=== PATIENT | male | born 1985 | race Caucasian/White ===

== ENCOUNTER → 2017-10-20 | Outpatient (CLI) | payer BC ==
--- NOTE | 2017-10-20 09:00 | US ---
EXAMINATION TYPE: US abdomen comp/pelvis limited DATE OF EXAM: 10/20/2017 COMPARISON: NONE CLINICAL HISTORY: R10.2 Pelvis and perineal Pain. Complains of pelvic pain x years and concerned abou t prostate; right flank pain and increased pelvic pain recently EXAM MEASUREMENTS: Liver Length: 13.1 cm Gallbladder Wall: 0.2 cm CBD: 0.2 cm Spleen: 10.3 cm Right Kidney: 11.3 x 5.9 x 5.6 cm Left Kidney: 11.3 x 6.0 x 5.8 cm Post Void Residual: 4.8 mL Pancreas: wnl Liver: wnl Gallbladder: wnl CBD: wnl Spleen: wnl Right Kidney: No hydronephrosis or masses seen Left Kidney: No hydronephrosis or masses seen Upper IVC: wnl Abd Aorta: upper aorta mildly obscured by overlying bowel gas, but size is wnl Bladder: wnl Bilateral Jets Seen Yes Normal Post Void Residual (normal less than 50ml) Yes Prostate Transabdominally: Large amount of Central Gland shadowing calcifications are noted within pr ostate. Urinary bladder is sonolucent. There is a normal postvoid residual 5 mL. IMPRESSION: 1. No acute process visualized. 2. Prostate appears prominent within the [id number].
== END | disposition home or self-care (01) ==
LOC: RADUSWWP 07:46
PROVIDERS: ATTEND Family Medicine
DX: R10.2 Pelvic and perineal pain (principal)
CPT/HCPCS: 76700; 76857

== ENCOUNTER → 2019-05-18 | Outpatient (CLI) | payer BC ==
--- NOTE | 2019-05-29 03:03 | EM ---
EVENT MONITOR Seven days event monitor DATE OF SERVICE: 05/18/2019. INDICATIONS: Palpitations. REFERRING PHYSICIAN: Dr. Schreiber. 7 day event monitor. CLINICAL INFORMATION: The baseline rhythm appeared to be a sinus mechanism. During this 7 days of monitoring, the patient did have multiple episodes of sinus tachycardia up to about 170 beats per minute, heart rate. Also, she did have multiple episodes of sinus bradycardia with the lowest heart rate of 42 beats per minute during the day. There was no indication that the patient was asymptomatic during these episodes of sinus tachycardia or sinus bradycardia. There is no evidence of any advanced AV block seen. No evidence of sinus pause or sinus arrest seen. I do not see any symptoms reported during the 7 days monitoring. CONCLUSION: 1. Sinus rhythm as a baseline mechanism. 2. The patient did have multiple episodes of sinus tachycardia with a highest heart rate of 170 beats per minute. She was asymptomatic during these episodes. 3. Multiple episodes of sinus bradycardia and seems to be date of sinus bradycardia with the lowest heart rate of 42 beats per minute at 11 in the morning. The patient does not seem to be symptomatic during these episodes. 4. No evidence of sinus pause or sinus arrest. 5. No evidence of any advanced AV block seen. MMODL / IJN: [id number] /
== END | disposition home or self-care (01) ==
LOC: RADECHMAIN 05-17 08:02
PROVIDERS: ATTEND Family Medicine
DX: R00.0 Tachycardia, unspecified (principal); R00.1 Bradycardia, unspecified
CPT/HCPCS: 93270

== ENCOUNTER → 2019-09-16 | Outpatient (CLI) | payer OTHER, BC ==
--- NOTE | 2019-09-16 11:15 | MR ---
EXAMINATION TYPE: MR lumbar spine wo con DATE OF EXAM: 09/16/2019 COMPARISON: NONE HISTORY: Lumbago With Sciatica TECHNIQUE: T1 and T2 axial and sagittal images of the lumbar spine are submitted. FINDINGS: There is no abnormal signal seen within the visualized spinal cord or paraspinal soft tissu es. Mild disc desiccation L1-2, L2-3, L3-4, and L5-S1. Incidental note is made of a retroaortic left renal vein At T12-L1 there is a broad-based central disc protrusion. There is displacement of the thecal sac but no spinal cord contact. Neural foramina remain patent. At L1-2 there is no disc herniation or canal stenosis. No foraminal encroachment. At L2-3 there is no disc herniation or canal stenosis. No foraminal encroachment. At L3-4 there is no disc herniation or canal stenosis. No foraminal encroachment. At L4-5 there is no disc herniation or canal stenosis. There is facet arthropathy. No foraminal encro achment. At L5-S1 there is advanced facet arthropathy. There is a slight anterolisthesis of L5 on S1. Findings suspicious for bilateral spondylolysis. No Canal stenosis. Posterior disc bulging seen. Moderate jose ateral foraminal encroachment. IMPRESSION: 1. Slight anterolisthesis L5 on S1 with suspected bilateral spondylolysis. Moderate bilateral foramin al encroachment. 2. There is a broad-based central disc protrusion T12-L1 with mass effect upon the thecal sac but no spinal cord contact or foraminal encroachment.
== END | disposition home or self-care (01) ==
LOC: RADMRIMAIN 10:32
PROVIDERS: ATTEND Family Medicine
DX: M51.26 Other intervertebral disc displacement, lumbar region (principal); M43.16 Spondylolisthesis, lumbar region
CPT/HCPCS: 72148

== ENCOUNTER → 2020-07-19 | Outpatient (CLI) | payer BC, OTHER | END | disposition home or self-care (01) | LOC: LABWHC1 14:37 | PROVIDERS: ATTEND Nurse Practitioner Family | DX: Z20.828 Contact with and (suspected) exposure to other viral communicable diseases (principal) | CPT/HCPCS: U0003; C9803 ==

== ENCOUNTER 2021-07-31 18:50 | Observation (INO) | payer BC, OTHER ==
[2021-07-31] MEDS ORDERED: ASPIRIN 81 MG PO STA (18:51)
[2021-07-31] MEDS ORDERED: NITROGLYCERIN OINT 1 INCH/GM PACKET TOPICAL STA (18:51)
--- NOTE | 2021-07-31 19:23 | ED ---
General Adult HPI - General Chief complaint: Chest Pain Stated complaint: abnormal labs, chest pain Time Seen by Provider: 07/31/21 18:51 Source: patient, RN/MD (Case was discussed with Dr. Espinoza prior to patient arrival), RN notes reviewed Mode of arrival: ambulatory Limitations: no limitations - History of Present Illness Initial comments: Patient is a pleasant 36-year-old male presenting to the emergency Department with complaints of chest discomfort. Onset of symptoms was several weeks ago. Patient has had persistent discomfort since that time. Discomfort at times does get worse, up to 45/10. Discomfort at this time is mild rated 2/10. Discomfort feels like pressure. Patient is unclear if there is minimal associated dyspnea. No nausea. No diaphoresis. Patient has not exerted himself since this started because he has been nervous 2. Patient did have outpatient blood work done through Dr. Espinoza who was concern for elevated troponin and recommended patient come to the emergency department. - Related Data Home Medications Medication Instructions Recorded Confirmed Aspirin 81 mg PO DAILY 06/28/14 07/31/21 Atorvastatin [Lipitor] 40 mg PO HS 07/31/21 07/31/21 Loratadine 10 mg PO DAILY 07/31/21 07/31/21 Montelukast [Singulair] 10 mg PO HS 07/31/21 07/31/21 hydroCHLOROthiazide [Hydrodiuril] 12.5 mg PO DAILY 07/31/21 07/31/21 lisinopriL 10 mg PO DAILY 07/31/21 07/31/21 Allergies Allergy/AdvReac Type Severity Reaction Status Date / Time cefaclor [From Ceclor] Allergy Unknown Verified 07/31/21 20:33 Childhood Penicillins Allergy Rash/Hives Verified 07/31/21 20:33 Review of Systems ROS Statement: Those systems with pertinent positive or pertinent negative responses have been documented in the HPI. ROS Other: All systems not noted in ROS Statement are negative. 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 History of Any Multi-Drug Resistant Organisms: None Reported Past Surgical History: Hernia Repair Additional Past Surgical History / Comment(s): recent vasectomy, had minimally invasive surgery 3 yrs ago to repair "holes" in heart Past Anesthesia/Blood Transfusion Reactions: No Reported Reaction Past Psychological History: No Psychological Hx Reported Past Alcohol Use History: Occasional Past Drug Use History: None Reported General Exam Limitations: no limitations General appearance: alert, in no apparent distress Head exam: Present: normocephalic Eye exam: Present: normal appearance Neck exam: Present: normal inspection Respiratory exam: Present: normal lung sounds bilaterally. Absent: chest wall tenderness Cardiovascular Exam: Present: regular rate, normal rhythm Expanded Peripheral pulses: 2+: Radial (R), Radial (L), Posterior Tibialis (R), Posterior Tibialis (L) GI/Abdominal exam: Present: soft. Absent: tenderness Extremities exam: Present: normal inspection. Absent: pedal edema, calf tenderness Neurological exam: Present: alert Psychiatric exam: Present: normal affect, normal mood Skin exam: Present: normal color Course Vital Signs 07/31/21 18:58 Temperature 98.1 F Pulse Rate 65 Respiratory 19 Rate Blood Pressure 146/93 O2 Sat by Pulse 97 Oximetry EKG Findings - EKG Comments: EKG Findings:: Normal sinus rhythm with rate of 74. GA 194. QRS 82. QT 34. Q TC 426. Normal axis. Normal QRS. No acute ST change. T-wave inversion in lead III. Medical Decision Making - Medical Decision Making Patient reevaluated and resting comfortably in bed. Patient family updated on results and plan. Case was discussed with practitioner Lang [email or web address], covering for Dr. Villa, who admits for Dr. Espinoza. - Lab Data Result diagrams: 07/31/21 19:33 07/31/21 19:33 Lab Results 07/31/21 07/31/21 07/31/21 Range/Units 19:33 19:33 19:33 WBC 5.3 (3.8-10.6) k/uL RBC 4.74 (4.30-5.90) m/uL Hgb 15.0 (13.0-17.5) gm/dL Hct 44.6 (39.0-53.0) % MCV 94.0 (80.0-100.0) fL MCH 31.7 (25.0-35.0) pg MCHC 33.7 (31.0-37.0) g/dL RDW 11.8 (11.5-15.5) % Plt Count 186 (150-450) k/uL MPV 6.8 Neutrophils % 52 % Lymphocytes % 36 % Monocytes % 6 % Eosinophils % 3 % Basophils % 1 % Neutrophils # 2.8 (1.3-7.7) k/uL Lymphocytes # 1.9 (1.0-4.8) k/uL Monocytes # 0.3 (0-1.0) k/uL Eosinophils # 0.1 (0-0.7) k/uL Basophils # 0.0 (0-0.2) k/uL PT (9.0-12.0) sec INR (<1.2) APTT (22.0-30.0) sec D-Dimer (<0.60) mg/L FEU Sodium 135 L (137-145) mmol/L Potassium 4.0 (3.5-5.1) mmol/L Chloride 102 (98-107) mmol/L Carbon Dioxide 23 (22-30) mmol/L Anion Gap 10 mmol/L BUN 23 H (9-20) mg/dL Creatinine 0.79 (0.66-1.25) mg/dL Est GFR (CKD-EPI)AfAm >90 (>60 ml/min/1.73 sqM) Est GFR (CKD-EPI)NonAf >90 (>60 ml/min/1.73 sqM) Glucose 99 (74-99) mg/dL Calcium 9.5 (8.4-10.2) mg/dL Magnesium 1.9 (1.6-2.3) mg/dL Total Bilirubin 0.4 (0.2-1.3) mg/dL AST 49 (17-59) U/L ALT 46 (4-49) U/L Alkaline Phosphatase 62 (38-126) U/L Troponin I <0.012 (0.000-0.034) ng/mL Total Protein 7.5 (6.3-8.2) g/dL Albumin 4.5 (3.5-5.0) g/dL 07/31/21 Range/Units 19:33 WBC (3.8-10.6) k/uL RBC (4.30-5.90) m/uL Hgb (13.0-17.5) gm/dL Hct (39.0-53.0) % MCV (80.0-100.0) fL MCH (25.0-35.0) pg MCHC (31.0-37.0) g/dL RDW (11.5-15.5) % Plt Count (150-450) k/uL MPV Neutrophils % % Lymphocytes % % Monocytes % % Eosinophils % % Basophils % % Neutrophils # (1.3-7.7) k/uL Lymphocytes # (1.0-4.8) k/uL Monocytes # (0-1.0) k/uL Eosinophils # (0-0.7) k/uL Basophils # (0-0.2) k/uL PT 10.2 (9.0-12.0) sec INR 0.9 (<1.2) APTT 24.2 (22.0-30.0) sec D-Dimer 0.24 (<0.60) mg/L FEU Sodium (137-145) mmol/L Potassium (3.5-5.1) mmol/L Chloride (98-107) mmol/L Carbon Dioxide (22-30) mmol/L Anion Gap mmol/L BUN (9-20) mg/dL Creatinine (0.66-1.25) mg/dL Est GFR (CKD-EPI)AfAm (>60 ml/min/1.73 sqM) Est GFR (CKD-EPI)NonAf (>60 ml/min/1.73 sqM) Glucose (74-99) mg/dL Calcium (8.4-10.2) mg/dL Magnesium (1.6-2.3) mg/dL Total Bilirubin (0.2-1.3) mg/dL AST (17-59) U/L ALT (4-49) U/L Alkaline Phosphatase (38-126) U/L Troponin I (0.000-0.034) ng/mL Total Protein (6.3-8.2) g/dL Albumin (3.5-5.0) g/dL - Radiology Data Radiology results: image reviewed (Chest x-ray shows no acute process) Disposition Clinical Impression: Chest pain Disposition: ADMITTED IP TO THIS [facility] Is patient prescribed a controlled substance at d/c from ED?: No Referrals: Kourtney Espinoza III, MD [Primary Care Provider] - 1-2 days Decision Time: 21:11
[2021-07-31 19:47] LABS: Basophils % (A) 1 %; Eosinophils # (A) 0.1 k/uL (0-0.7); Eosinophils % (A) 3 %; HCT 44.6 % (39.0-53.0); Lymphocytes # (A) 1.9 k/uL (1.0-4.8); Lymphocytes % (A) 36 %; MCH 31.7 pg (25.0-35.0); MCHC 33.7 g/dL (31.0-37.0); Mean Platelet Volume 6.8; Monocytes # (A) 0.3 k/uL (0-1.0); Monocytes % (A) 6 %; Neutrophils # (A) 2.8 k/uL (1.3-7.7); Neutrophils % (A) 52 %; Platelet Count 186 k/uL (150-450); RBC 4.74 m/uL (4.30-5.90); RDW 11.8 % (11.5-15.5); WBC 5.3 k/uL (3.8-10.6)
[2021-07-31 20:06] LABS: INR 0.9 (<1.2); Partial Thromboplastin Time 24.2 sec (22.0-30.0); Prothrombin Time 10.2 sec (9.0-12.0)
--- NOTE | 2021-07-31 20:06 | XR ---
EXAMINATION TYPE: XR chest 2V DATE OF EXAM: 07/31/2021 COMPARISON: NONE HISTORY: Chest pain TECHNIQUE: 2 views FINDINGS: Heart and mediastinum are normal. Lungs are clear. Diaphragm is normal. Bony thorax is inta ct. IMPRESSION: Normal chest. Normal heart.
[2021-07-31 20:45] LABS: ALT 46 U/L (4-49); AST 49 U/L (17-59); African American GFR (CKD) >90 (>60 ml/min/1.73 sqM); Albumin 4.5 g/dL (3.5-5.0); Alkaline Phosphatase 62 U/L (38-126); Anion Gap 10 mmol/L; Blood Urea Nitrogen 23 mg/dL (9-20); Calcium 9.5 mg/dL (8.4-10.2); Carbon Dioxide 23 mmol/L (22-30); Chloride 102 mmol/L (98-107); Glucose 99 mg/dL (74-99); Magnesium 1.9 mg/dL (1.6-2.3); Non-African American GFR(CKD) >90 (>60 ml/min/1.73 sqM); Sodium 135 mmol/L (137-145); Total Bilirubin 0.4 mg/dL (0.2-1.3); Total Protein 7.5 g/dL (6.3-8.2)
[2021-07-31] MEDS ORDERED: NITROGLYCERIN SL TABS 0.4 MG TAB SUBLINGUAL PRN (21:12)
[2021-08-01 07:56] VITALS: TEMP 98
[2021-08-01] MEDS: NITROGLYCERIN OINT 1 INCH/GM PACKET TOPICAL SCH (08:29)
[2021-08-01] MEDS ORDERED: ASPIRIN 325 MG TAB PO SCH (09:00)
--- NOTE | 2021-08-01 09:40 | P.CRDCN ---
History of Present Illness History of present illness: HISTORY OF PRESENTING ILLNESS This is a pleasant 36-year-old male past medical history significant for former smoker quit 10 years ago, hypertension, dyslipidemia, asthma, status post device closer of ASD, TIA. He does not follow with a psychiatric orderly but has seen Dr. Ernst in 2019 in the office. We have been asked to see in consultation for chest pain. Patient is seen and examined in the emergency department. Patient states he's had central chest pressure for 5 weeks and some right-sided chest pressure. He states that the pain comes and goes however lately it has been more constant. He went to his primary care provider yesterday and her chest x-ray, EKG and troponin was drawn. Patient was told to come to the emergency department as his troponin was elevated. This chest pressure is nonexertional, nonradiating. Patient denies any associated nausea, shortness of breath, lightheadedness, dizziness, palpitations, syncope or presyncope. He denies any symptoms of orthopnea or PND. He denies any specific aggravating or alleviating factors. He denies any history of IL, coronary disease, diabetes. His family history includes his father had an IL in his 40s. He denies any current tobacco use. He occasionally drinks alcohol. Denies illicit drug use.. DIAGNOSTICS EKG reveals sinus rhythm, heart 74, T wave inversion in lead III, no significant ST-T wave abnormalities. Prior EKG in 2019 in the office with similar findings. Most recent echocardiogram 03/2019 revealed a normal ejection fraction Most recent stress test Cardiolite in 02/2019 negative for reversible ischemia. Telemetry tracings indicate sinus mechanism. Chest xray no acute cardiopulmonary process. Laboratory reviewed, CBC unremarkable, d-dimer negative, troponin negative 3, sodium 135, potassium 4.0, BUN 23, serum creatinine 0.7, magnesium 1.9, liver enzymes within normal limits, COVID-19 PCR negative. Current home medications include lisinopril 10 mg daily, atorvastatin 40 mg daily, aspirin milligrams daily, Hydrocort size at 2.5 mg daily REVIEW OF SYSTEMS At the time of my exam: CONSTITUTIONAL: Denies fever or chills. CARDIOVASCULAR: Positive chest pain Denies shortness of breath, orthopnea, PND or palpitations. RESPIRATORY: Denies cough. GASTROINTESTINAL: Denies abdominal pain, diarrhea, constipation, nausea or vomiting. MUSCULOSKELETAL: Denies myalgias. NEUROLOGIC: Denies numbness, tingling, headache or weakness. ENDOCRINE: Denies fatigue, weight change, polydipsia or polyurina. GENITOURINARY: Denies burning, hematuria or urgency with micturation. HEMATOLOGIC: Denies history of anemia or bleeding. PHYSICAL EXAMINATION Blood pressure 118/71, heart rate 62, afebrile maintaining saturations on room air CONSTITUTIONAL: No apparent distress. HEENT: Head is normocephalic. Pupils are equal, round. Sclerae anicteric. Mucous membranes of the mouth are moist. No JVD. No carotid bruit. CHEST EXAMINATION: Lungs are clear to auscultation. No chest wall tenderness is noted on palpation or with deep breathing. HEART EXAMINATION: Regular rate and rhythm. S1, S2 heard. No murmurs, gallops or rub. ABDOMEN: Soft, nontender. Positive bowel sounds. EXTREMITIES: 2+ peripheral pulses, no lower extremity edema and no calf tenderness. SKIN: warm, dry NEUROLOGIC EXAMINATION: Patient is awake, alert and oriented x3. ASSESSMENT Chest pain, atypical, acute coronary syndrome has ruled out History of hypertension Former tobacco use History of dyslipidemia History of asthma History of TIA History of device closure of ASD PLAN An acute coronary event has been ruled out with no EKG evidence of ischemia and negative cardiac enzymes. Obtain 2D echocardiogram and doppler study to assess cardiac structure and function. Lipid Panel Perform stress echo test to assess for stress induced cardiac ischemia. If abnormal will consider coronary angiography. If stress test is normal, ok to discharge from a cardiology perspective. Thank you kindly for this consultation. Nurse Practitioner note has been reviewed, I agree with a documented findings and plan of care. Patient was seen and examined. 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 History of Any Multi-Drug Resistant Organisms: None Reported Past Surgical History: Hernia Repair Additional Past Surgical History / Comment(s): recent vasectomy, had minimally invasive surgery 3 yrs ago to repair "holes" in heart Past Anesthesia/Blood Transfusion Reactions: No Reported Reaction Past Psychological History: No Psychological Hx Reported Past Alcohol Use History: Occasional Past Drug Use History: None Reported Medications and Allergies Home Medications Medication Instructions Recorded Confirmed Type Aspirin 81 mg PO DAILY 06/28/14 07/31/21 History Atorvastatin [Lipitor] 40 mg PO HS 07/31/21 07/31/21 History Loratadine 10 mg PO DAILY 07/31/21 07/31/21 History Montelukast [Singulair] 10 mg PO HS 07/31/21 07/31/21 History hydroCHLOROthiazide [Hydrodiuril] 12.5 mg PO DAILY 07/31/21 07/31/21 History lisinopriL 10 mg PO DAILY 07/31/21 07/31/21 History Allergies Allergy/AdvReac Type Severity Reaction Status Date / Time cefaclor [From [facility]] Allergy Unknown Verified 07/31/21 20:33 Childhood Penicillins Allergy Rash/Hives Verified 07/31/21 20:33 Physical Exam Vitals: Vital Signs Temp Pulse Resp BP Pulse Ox 08/01/21 07:44 98.0 F 63 16 118/71 95 08/01/21 03:00 61 18 111/71 99 08/01/21 01:00 98.2 F 62 18 109/67 98 07/31/21 21:00 66 18 117/53 98 07/31/21 20:00 67 18 126/81 99 07/31/21 18:58 98.1 F 65 19 146/93 97 Intake and Output 07/31/21 08/01/21 08/01/21 22:59 06:59 14:59 Other: Weight 117.934 kg Results 07/31/21 19:33 07/31/21 19:33 Cardiac Enzymes 07/31/21 07/31/21 07/31/21 Range/Units 19:33 19:33 21:45 AST 49 (17-59) U/L Troponin I <0.012 <0.012 (0.000-0.034) ng/mL 08/01/21 Range/Units 00:56 AST (17-59) U/L Troponin I <0.012 (0.000-0.034) ng/mL Coagulation 07/31/21 Range/Units 19:33 PT 10.2 (9.0-12.0) sec APTT 24.2 (22.0-30.0) sec CBC 07/31/21 Range/Units 19:33 WBC 5.3 (3.8-10.6) k/uL RBC 4.74 (4.30-5.90) m/uL Hgb 15.0 (13.0-17.5) gm/dL Hct 44.6 (39.0-53.0) % Plt Count 186 (150-450) k/uL Comprehensive Metabolic Panel 07/31/21 Range/Units 19:33 Sodium 135 L (137-145) mmol/L Potassium 4.0 (3.5-5.1) mmol/L Chloride 102 (98-107) mmol/L Carbon Dioxide 23 (22-30) mmol/L BUN 23 H (9-20) mg/dL Creatinine 0.79 (0.66-1.25) mg/dL Glucose 99 (74-99) mg/dL Calcium 9.5 (8.4-10.2) mg/dL AST 49 (17-59) U/L ALT 46 (4-49) U/L Alkaline Phosphatase 62 (38-126) U/L Total Protein 7.5 (6.3-8.2) g/dL Albumin 4.5 (3.5-5.0) g/dL Current Medications Generic Name Dose Route Start Last Admin Trade Name Freq PRN Reason Stop Dose Admin Aspirin 81 mg 08/02/21 09:00 Aspirin 81 Mg PO DAILY COUNTS INCLUDE 234 BEDS AT THE [facility] Atorvastatin Calcium 40 mg 08/01/21 21:00 Atorvastatin 40 Mg Tab PO HS COUNTS INCLUDE 234 BEDS AT THE [facility] Lisinopril 10 mg 08/02/21 09:00 Lisinopril 10 Mg Tab PO DAILY COUNTS INCLUDE 234 BEDS AT THE [facility] Nitroglycerin 0.4 mg 07/31/21 21:12 Nitroglycerin Sl Tabs 0.4 Mg Tab SUBLINGUAL Q5M PRN Chest Pain Sodium Chloride 10 ml 08/01/21 09:00 08/01/21 09:06 Sodium Chloride 0.9% Flush 10 Ml Syringe IV 10 ml BID [id number] Administration Intake and Output 07/31/21 08/01/21 08/01/21 22:59 06:59 14:59 Other: Weight 117.934 kg 07/31/21 19:33 07/31/21 19:33
--- NOTE | 2021-08-01 11:35 | ECHOF ---
Referral Reason:chest pain MEASUREMENTS -------- HEIGHT: 190.5 cm WEIGHT: 117.9 kg BP: 111/71 RVIDd: 4.4 cm (< 3.3) IVSd: 1.3 cm (0.6 - 1.1) LVIDd: 4.9 cm (3.9 - 5.3) LVPWd: 1.0 cm (0.6 - 1.1) IVSs: 1.5 cm LVIDs: 3.0 cm LVPWs: 1.5 cm LAESV Index (A-L): 24.74 ml/m Ao Diam: 3.0 cm (2.0 - 3.7) AV Cusp: 2.1 cm (1.5 - 2.6) LA Diam: 4.1 cm (2.7 - 3.8) MV EXCURSION: 24.208 mm (> 18.000) MV EF SLOPE: 85 mm/s (70 - 150) EPSS: 0.3 cm MV E Prashant: 0.92 m/s MV DecT: 204 ms MV A Prashant: 0.45 m/s MV E/A Ratio: 2.05 RAP: 5.00 mmHg RVSP: 25.80 mmHg FINDINGS -------- Sinus rhythm. This was a technically adequate study. The left ventricular size is normal. There is mild concentric left ventricular hypertrophy. Overa ll left ventricular systolic function is normal with, an EF between 55 - 60 %. The diastolic fillin g pattern is normal for the age of the patient 10.97. The right ventricle is moderately enlarged. Normal LA size by volume 22+/-6 ml/m2. The right atrial size is normal. There is an interatrial closure device in place without evidence of shunt. The aortic valve is trileaflet, and appears structurally normal. No aortic stenosis or regurgitation. Normal appearing mitral valve. The tricuspid valve appears structurally normal. Mild tricuspid regurgitation present. Right vent ricular systolic pressure is normal at < 35 mmHg. The right ventricular systolic pressure, as measu red by Doppler, is 25.80mmHg. There is no pulmonic regurgitation present. The aortic root size is normal. IVC Not well visulized. There is no pericardial effusion. CONCLUSIONS -------- 1. There is mild concentric left ventricular hypertrophy. 2. Overall left ventricular systolic function is normal with, an EF between 55 - 60 %. 3. The right ventricle is moderately enlarged. 4. Normal LA size by volume 22+/-6 ml/m2. 5. There is an interatrial closure device in place without evidence of shunt. 6. The aortic valve is trileaflet, and appears structurally normal. No aortic stenosis or regurgitati on. 7. Normal appearing mitral valve. 8. Mild tricuspid regurgitation present. RESAW MACHINE OPERATOR: Hedy Kaye RDCS
[2021-08-01] MEDS ORDERED: RX INFO: IV CONTRAST WAS GIVEN 1 EACH MISC MISCELLANE PRN (12:26)
[2021-08-01 12:47] LABS: Chol/HDL Ratio 2.79 Ratio; HDL Cholesterol 57.7 mg/dL (40.00-60.00); LDL Cholesterol,Calculated 87.7 mg/dL (0.0-131.0); Triglycerides 77.9 mg/dL (0.00-149.00); VLDL Calculation 15.58 mg/dL (5.00-40.00)
--- NOTE | 2021-08-01 13:18 | CT ---
EXAMINATION TYPE: CT chest w con DATE OF EXAM: 08/01/2021 COMPARISON: 07/31/2021 HISTORY: chest pain CT DLP: 581.2 mGycm Automated exposure control for dose reduction was used. TECHNIQUE: CT scan of the chest is performed with IV Contrast, patient injected with 100 mL of Isovue 300. MIP Images are created on CT scanner and reviewed. 3D reconstructed images are created on an independent workstation and reviewed. FINDINGS: LUNGS: The lungs are grossly clear, there is no concerning parenchymal mass or nodule identified. T here is no pleural effusion or pneumothorax seen. The tracheobronchial tree is patent. There is a 3 mm nodule in the right middle lobe axial image 36. MEDIASTINUM: There are no greater than 1 cm hilar or mediastinal lymph nodes. No pericardial effusi on is seen. OTHER: Hypertrophic and degenerative change of the spine. IMPRESSION: 1. No acute process. 2. There is a 3 mm nodule in the right middle lobe. 12 month follow-up recommended.
--- NOTE | 2021-08-01 13:31 | US ---
EXAMINATION TYPE: US gallbladder DATE OF EXAM: 08/01/2021 COMPARISON: Ultrasound abdomen 10/20/2017, CT chest 07/02/2021 CLINICAL HISTORY: pain. Chest pain. EXAM MEASUREMENTS: Liver Length: 16.5 cm Gallbladder Wall: 0.2 cm CHD: 0.4 cm Right Kidney: 11.5 x 6.0 x 6.8 cm Pancreas: Obscured by bowel gas Liver: Poorly penetrated by the ultrasound Gallbladder: No stones or wall thickening seen Evidence for sonographic Sanchez's sign: neg CBD: Obscured by overlying bowel gas CHD: wnl Right Kidney: No hydronephrosis or masses seen IMPRESSION: Exam is limited. There may be underlying hepatic steatosis. No evident gallstone.
[2021-08-01 15:15] VITALS: BP 116/72; PULSE 68; RESP 16
--- NOTE | 2021-08-01 17:01 | HP ---
HISTORY AND PHYSICAL HISTORY AND PHYSICAL/DISCHARGE SUMMARY: DATE OF SERVICE: 08/01/2021. CHIEF COMPLAINT: Chest pain and abnormal troponin. HISTORY OF PRESENT ILLNESS: This 36-year-old gentleman with a past medical history of multiple medical problems, CVA, TIA, hypertension, history of migraines, history of stroke, being followed by Dr. Espinoza in the outpatient setting complaining of chest pain. The patient had chest pain which was located mainly on the right side, on and off for the past several weeks. The patient is taking outpatient medications and outpatient troponins elevated. Patient was referred to [facility] for further evaluation and treatment. There is no history of fever, rigors or chills. No history of headache, loss of consciousness, seizures. Patient had extensive evaluation including the cardiology workup and stress test and the final report is pending but however cardiology cleared the patient for discharge. The patient also underwent a CT scan of the chest and a 2D echo with Doppler. The CT scan of the chest which was done without contrast showed a 3 mm nodule in the right middle lobe pneumonia. follow up is being suggested and recommend also follow the patient with Dr. Cabello in the outpatient setting also. There is no history of fever, rigors or chills. No history of headache, loss of consciousness or seizures at this time. PAST MEDICAL HISTORY: History of hypertension, CVA, TIA, history of migraines. MEDICATIONS: Medications prior to admission include: Singulair, loratadine, aspirin, lisinopril, hydrochlorothiazide, Lipitor. Doses reviewed. ALLERGIES: PENICILLIN. FAMILY HISTORY: No history of heart disease or strokes in the family. SOCIAL HISTORY: Occasional alcohol intake. No history of smoking. REVIEW OF SYSTEMS: ENT: No diminished vision. No diminished hearing. CARDIOVASCULAR system: As mentioned earlier. RESPIRATIONS: As mentioned earlier. GI: No nausea or vomiting. : No dysuria or retention. NERVOUS SYSTEM: As mentioned earlier. ALLERGIES: No asthma or hayfever. MUSCULOSKELETAL: As mentioned earlier. HEMATOLOGY/ONCOLOGY: No history of anemia. ENDOCRINE: No history of diabetes or hypothyroidism. CONSTITUTIONAL: As mentioned earlier. DERMATOLOGY: Negative. RHEUMATOLOGY: Negative. PSYCHIATRIC: As mentioned earlier. PHYSICAL EXAMINATION: GENERAL: The patient is alert and oriented times three. Pulse 105. Blood pressure 131/81, respiration 19, temperature 98 degrees, pulse ox 98% on room air. HEENT: Conjunctivae normal. NECK: No JVD. CARDIOVASCULAR: S1, S2 muffled. RESPIRATION: Breath sounds diminished in the bases. No rhonchi. No crackles. ABDOMEN: Soft, nontender. No mass palpable. LEGS: No edema. No swelling. NERVOUS SYSTEM: Higher functions as mentioned. Moves all four limbs. No focal deficits. LYMPHATICS: No lymph nodes palpable in the neck, axillae or groin. SKIN: No ulcer, rash or bleeding. JOINTS: No active deforming arthropathy. LAB: CBC within normal limits. D-dimer 0.4. Sodium 135, BUN is 23 and COVID-19 is negative. Otherwise, chest CT scan, gallbladder ultrasound and a 2D echo with Doppler was reviewed. The final stress test report is now pending at this time. The sed rate is 2. ASSESSMENT: 1. Chest pain for evaluation possibly musculoskeletal with negative stress test. 2. Mild hyponatremia. 3. Increased BUN. 4. History of cerebrovascular accident, transient ischemic attack. 5. Hypertension. 6. History of migraine. 7. History of hernia repair. 8. History of recent vasectomy. 9. Obesity with body mass of 32.5. RECOMMENDATION AND DISCUSSION: In this 36-year-old gentleman who presented with multiple complex medical issues, at this time, the patient apparently had a negative stress test by Cardiology. All other evaluation negative except 3 mm nodule in the CT scan of the chest. Recommend the patient to follow up with primary physician, Dr. Espinoza and as well as Dr. Cabello in the outpatient setting. The following medications are recommended: Diet is cardiac diet. Activity limited until followup. Follow up with Dr. Espinoza in 1- 2 days. Follow up with Dr. Cabello in a few weeks. Follow up with the CT scan. DISCHARGE MEDICATIONS: 1. Aspirin 81 mg daily. 2. Hydrochlorothiazide 12.5 daily. 3. Lipitor 40 mg q.h.s. 4. Lisinopril 10 mg daily. 5. Loratadine 10 mg daily. 6. Singulair 10 mg q.h.s. 7. Tylenol p.r.n. Once again, the patient is being discharged in stable condition with overall guarded prognosis because of the above mentioned multiple medical issues. MMODL / IJN: [id number] / [facility]
--- NOTE | 2021-08-01 19:31 | ECHOS ---
STRESS ECHOCARDIOGRAM INDICATIONS: Chest pain BASELINE HEART RATE: 54 BASELINE BLOOD PRESSURE: 114/49 MAXIMUM HEART RATE: 189 MAXIMUM BLOOD PRESSURE: 207/83 85% MPHR: 156 100% MPHR: 183 METS: 12.1 MAXIMUM STAGE REACHED: 4 TOTAL EXERCISE TIME: 12:00 CLINICAL INFORMATION: Baseline rhythm is sinus mechanism, rate of 54, normal axis, intervals, normal echocardiogram. Baseline blood pressure 114/49 mmHg. Patient exercised on Dong protocol for 12 minutes, reaching a peak rate of 189 beats per minute, which is equal to 100% maximum predicted heart rate. Peak blood pressure 207/83 mmHg. Test was terminated secondary to fatigue. There was no chest pain. Electrocardiographic monitoring revealed no evidence of diagnostic ischemic ST deviation. FINDINGS: Baseline echocardiogram revealed normal wall motion. At peak exercise there was normal wall motion augmentation with no hypokinesis or dyskinesis. CONCLUSION: 1. Good exercise tolerance with normal echocardiograph response to exercise. 2. Normal stress echocardiogram with no evidence of stress-induced ischemia. MMODL / IJN: [id number] /
[2021-08-01] MEDS ORDERED: ATORVASTATIN 40 MG TAB PO SCH (21:00)
[2021-08-02] MEDS ORDERED: lisinopriL 10 MG TAB PO SCH (09:00)
[2021-08-02] MEDS ORDERED: ASPIRIN 81 MG PO SCH (09:00)
== END 2021-08-01 16:16 | disposition home or self-care (01) ==
LOC: EC 18:50 → 1SOBS 21:12 → 6NMEDSUR 08-01 00:47
PROVIDERS: ADMIT Hospitalist; ATTEND Hospitalist
DX: R07.89 Other chest pain (principal); E87.1 Hypo-osmolality and hyponatremia; R94.4 Abnormal results of kidney function studies; Z86.73 Personal history of transient ischemic attack (TIA), and cerebral infarction without residual deficits; I10 Essential (primary) hypertension; R77.8 Other specified abnormalities of plasma proteins; E78.5 Hyperlipidemia, unspecified; R91.1 Solitary pulmonary nodule; G43.909 Migraine, unspecified, not intractable, without status migrainosus; J45.909 Unspecified asthma, uncomplicated; E66.9 Obesity, unspecified; Z68.32 Body mass index [BMI] 32.0-32.9, adult; Z20.822 Contact with and (suspected) exposure to COVID-19; Z87.891 Personal history of nicotine dependence; Z87.74 Personal history of (corrected) congenital malformations of heart and circulatory system; Z79.82 Long term (current) use of aspirin; Z79.899 Other long term (current) drug therapy; Z88.0 Allergy status to penicillin; Z88.1 Allergy status to other antibiotic agents; Z98.890 Other specified postprocedural states; Z82.49 Family history of ischemic heart disease and other diseases of the circulatory system
CPT/HCPCS: 99285; 36415; 93005; 93306; 93351; 85379; 80061; 80053; 85652; 83735; 84484 ×2; 85025; 85610; 85730; 86140; 87635; 71046; 76705; 71260; G0378 ×3; Q9967

== ENCOUNTER → 2022-04-05 | Outpatient (CLI) | payer BC ==
--- NOTE | 2022-04-05 17:53 | US ---
EXAMINATION TYPE: US scrotum with doppler. Grayscale and color Doppler Duplex imaging performed of jamie martínez scrotum. DATE OF EXAM: 04/05/2022 COMPARISON: NONE CLINICAL HISTORY: N50.81 Testicular pain. EXAM MEASUREMENTS: TESTICLES: Right Testicle: 5.0 x 2.5 x 3.4 cm Left Testicle: 4.2 x 2.1 x 2.9 cm EPIDIDYMIS HEAD: Right Epididymis: 1.3 cm, 0.6cm cyst Left Epididymis: 1.5 cm Doppler performed to assess for testicular vascularity; good bilateral color flow and waveforms are s een. There is no evidence of testicular torsion. No evidence for intratesticular mass. Presence of hydroceles: left - 2.6cm Presence of varicoceles: no IMPRESSION: Left-sided hydrocele. Right epididymal head cyst. Otherwise unremarkable study.
== END | disposition home or self-care (01) ==
LOC: RADUSWWP 16:38
PROVIDERS: ATTEND Family Medicine
DX: N43.3 Hydrocele, unspecified (principal); N50.3 Cyst of epididymis
CPT/HCPCS: 76870; 93975

== ENCOUNTER → 2023-07-24 | Outpatient (CLI) | payer BC ==
--- NOTE | 2023-07-24 17:05 | US ---
EXAMINATION TYPE: US scrotum with doppler. Grayscale and color Doppler Duplex imaging performed of t mauricio scrotum. DATE OF EXAM: 07/24/2023 COMPARISON: US 2021 CLINICAL INDICATION: Male, 38 years old with history of N50.9 DISORDER OF MALE GENITAL ORGANS, UNSPEC IFIED; Palpable lump left testicle x 1 day EXAM MEASUREMENTS: TESTICLES: Right Testicle: 5.4 x 2.3 x 3.4 cm Left Testicle: 4.8 x 2.1 x 3.3 cm EPIDIDYMIS HEAD: Right Epididymis: 1.3 cm Left Epididymis: 1.3 cm Doppler performed to assess for testicular vascularity; good bilateral color flow and waveforms are s een. There is no evidence of testicular torsion. Presence of hydroceles: left - 3.5cm Presence of varicoceles: no Right epididymis: 0.5cm cyst within epididymal head tubular ectasia of the left epididymis. Left epididymis: 1.5 x 1.1 x 1.5cm palpable hypoechoic area within epididymal tail tubular ectasia of the left epididymis. IMPRESSION: 1. Left peritesticular mass within the epididymis could represent Adenomatoid tumors of the scrotum which is the most common tumor of the epididymis. Short-term follow-up recommended to ensure stabilit y 2. No evidence for intratesticular mass. 3. Left epididymal palpable hypoechoic lesion
== END | disposition home or self-care (01) ==
LOC: RADUSWWP 14:14
PROVIDERS: ATTEND Family Medicine
DX: N50.89 Other specified disorders of the male genital organs (principal)
CPT/HCPCS: 76870; 93975

== ENCOUNTER → 2023-09-24 | Outpatient (CLI) | payer OTHER ==
--- NOTE | 2023-09-25 09:30 | CA ---
Transthoracic Echo Report Name: Rodney Ramey Age: 38 Gender: M : 1985 Exam Date: 09/24/2023 12:44 Exam Location: [place] Echo Ht (in): 75 Wt (lb): 255 Ordering Physician: [facility], [facility] Attending/Referring Phys: Eduard Gonzalez PAC [place] [facility] Procedure CPT: Indications: R01.1 cardiac murmur Cardiac Hx: Technical Quality: Fair Contrast 1: Total Dose (mL): Contrast 2: Total Dose (mL): MEASUREMENTS (Male / Female) Normal Values 2D ECHO LV Diastolic Diameter PLAX 4.4 cm 4.2 - 5.9 / 3.9 - 5.3 cm LV Systolic Diameter PLAX 2.8 cm IVS Diastolic Thickness 1.0 cm 0.6 - 1.0 / 0.6 - 0.9 cm LVPW Diastolic Thickness 1.0 cm 0.6 - 1.0 / 0.6 - 0.9 cm LV Relative Wall Thickness 0.5 LVOT Diameter 2.2 cm Ascending Aorta Diameter 3.2 cm M-MODE Aortic Root Diameter MM 3.4 cm LA Systolic Diameter MM 4.1 cm LA Ao Ratio MM 1.2 AV Cusp Separation MM 2.3 cm DOPPLER AV Peak Velocity 110.3 cm/s AV Peak Gradient 4.9 mmHg AV Mean Velocity 79.6 cm/s AV Mean Gradient 2.8 mmHg AV Velocity Time Integral 21.3 cm LVOT Peak Velocity 101.7 cm/s LVOT Peak Gradient 4.1 mmHg LVOT Velocity Time Integral 20.9 cm LVOT Stroke Volume 76.1 cm??? LVOT Stroke Volume Index 31.3 ml/m??? LVOT Cardiac Index 2189.3 cm???/min???m??? AV Area Cont Eq vti 3.6 cm??? AV Area Cont Eq pk 3.4 cm??? Mitral E Point Velocity 58.4 cm/s Mitral A Point Velocity 51.2 cm/s Mitral E to A Ratio 1.1 MV Deceleration Time 186.6 ms LV E' Lateral Velocity 12.5 cm/s Mitral E to LV E' Lateral Ratio 4.7 LV E' Septal Velocity 8.4 cm/s Mitral E to LV E' Septal Ratio 6.9 TR Peak Velocity 220.4 cm/s TR Peak Gradient 19.4 mmHg Right Atrial Pressure 3.0 mmHg Pulmonary Artery Systolic Pressu 22.4 mmHg Right Ventricular Systolic Press 22.4 mmHg FINDINGS Left Ventricle Left ventricular wall thickness normal. Left ventricular cavity size normal. Normal left ventricular systolic function with no obvious regional wall motion abnormalities. Left ventricular ejection fraction is estimated at 55-60%. Right Ventricle Moderate right ventricular dilatation. Right Atrium Moderate right atrial dilatation. Left Atrium Normal left atrial size. PFO closure device seen and appears intact. Mitral Valve Structurally normal mitral valve. No mitral regurgitation. Aortic Valve Trileaflet aortic valve. No aortic valve stenosis or regurgitation. Tricuspid Valve Structurally normal tricuspid valve. Trace tricuspid regurgitation. Pulmonic Valve Pulmonic valve not well visualized. Pericardium No pericardial effusion. Aorta Normal size aortic root and proximal ascending aorta. CONCLUSIONS Normal LV size and systolic function. Right atrium is enlarged. PFO closure device noted. No shunt. Mild tricuspid regurgitation no pulmonary hypertension. No pericardial effusion Previewed by: Dr. Essence Lott MD (Electronically Signed) Final Date: 25 September 2023 09:29
== END | disposition home or self-care (01) ==
LOC: RADECHMAIN 11:59
DX: I36.1 Nonrheumatic tricuspid (valve) insufficiency (principal); I51.7 Cardiomegaly; R01.1 Cardiac murmur, unspecified
CPT/HCPCS: 93306

== ENCOUNTER → 2023-12-25 | Outpatient (CLI) | payer BC ==
--- NOTE | 2023-12-25 10:40 | US ---
EXAMINATION TYPE: US scrotum with doppler. Grayscale and color Doppler Duplex imaging performed of jamie he scrotum. DATE OF EXAM: 12/25/2023 COMPARISON: US 07/24/2023 CLINICAL INDICATION: Male, 38 years old with history of D29.30 BENIGN NEOPLASM OF UNSPECIFIED; Patien t has bilateral palpable areas that we are following. No new pain or symptoms. Patient states that th [place] areas feel smaller. EXAM MEASUREMENTS: TESTICLES: Right Testicle: 5.0 x 3.0 x 3.4 cm Left Testicle: 4.9 x 2.8 x 3.1 cm EPIDIDYMIS HEAD: Right Epididymis: 1.2 x 1.1 cm. There is a 0.5 x 0.7 x 0.7cm cystic area seen within the right epidi dymal head. Tubular ectasia of the epidiymis Left Epididymis: 1.3 x 0.7 cm. There is a 1.1 x 0.7 x 0.6cm hypoechoic area seen in the left epididy mal tail, previously measured 1.5 x 1.1 x 1.5cm. This area has less vascularity surrounding it than p reviously seen.Tubular ectasia of the epididymis. Doppler performed to assess for testicular vascularity; good bilateral color flow and waveforms are s een. There is no evidence of testicular torsion. Presence of hydroceles: Left 2.5 x 1.1cm Presence of varicoceles: Left sided IMPRESSION: 1. Slightly smaller in size lesion of the left epididymal tail could reflect an adenomatoid lesion. C orrelate clinically and continued progress studies are recommended. 2. Right epididymal head cyst.
== END | disposition home or self-care (01) ==
LOC: RADUSWWP 09:22
PROVIDERS: ATTEND Family Medicine
DX: N50.3 Cyst of epididymis (principal)
CPT/HCPCS: 76870; 93975

== ENCOUNTER → 2024-01-01 | Outpatient (CLI) | payer BC, OTHER ==
[2024-01-01 15:21] LABS: Basophils # (A) 0.04 X 10*3/uL (0.00-0.10); Basophils % (A) 0.9 %; Eosinophils # (A) 0.09 X 10*3/uL (0.04-0.35); Eosinophils % (A) 2.1 %; HCT 47.3 % (39.6-50.0); HGB 15.8 g/dL (13.0-17.0); Lymphocytes % (A) 32.6 %; MCH 31.6 pg (27.0-32.0); MCHC 33.4 g/dL (32.0-37.0); MCV 94.6 FL (80.0-97.0); Mean Platelet Volume 9.5 FL (9.5-12.2); Monocytes # (A) 0.42 X 10*3/uL (0.20-1.00); Monocytes % (A) 9.8 %; NRBC Per 100 WBC 0 X 10*3/uL (0.00-0.01); Neutrophils # (A) 2.33 X 10*3/uL (1.80-7.70); Neutrophils % (A) 54.4 %; Platelet Count 199 X 10*3/uL (140-440); RDW 12.8 % (11.5-14.5); WBC 4.29 X 10*3/uL (4.50-10.00)
[2024-01-01 15:50] LABS: Erythrocyte Sedimentation Rate 12 mm/Hr (0-15)
[2024-01-01 16:07] LABS: C Reactive Protein <0.30 mg/dL (0.00-0.80); Rheumatoid Factor, Qnt <15 IU/mL (0-15); Uric Acid 6.5 mg/dL (3.7-8.7)
[2024-01-01 20:38] LABS: Anti-DNA, DS unit <1.0 IU/mL; DNA Double-Stranded Negative (Negative)
[2024-01-02 10:17] LABS: HLA B27 NEGATIVE
== END | disposition home or self-care (01) ==
LOC: LABWHC1 11:06
PROVIDERS: ATTEND Orthopaedic Surgery
DX: M25.50 Pain in unspecified joint (principal)
CPT/HCPCS: 36415; 84550; 85025; 85652; 86038; 86140; 86225; 86431; 86618; 86812

== ENCOUNTER 2024-03-18 06:00 | Emergency (ER) | payer OTHER, BC ==
[2024-03-18 06:11] VITALS: RESP 18; TEMP 98
--- NOTE | 2024-03-18 06:31 | ED ---
Extremity Problem HPI - General Chief complaint: Extremity Problem,Nontraumatic Stated complaint: Rt Leg Pain Time Seen by Provider: 03/18/24 06:14 Source: patient, RN notes reviewed Mode of arrival: ambulatory Limitations: no limitations - History of Present Illness Initial comments: 39-year-old male presents emergency department chief complaint of right leg pain, right foot pain. Patient states this is atraumatic he denies any known injury. He complains of severe pain when he steps down on the left foot in the arch of his foot. Patient states he has not had any new shoes has not changed any daily activities. Denies any change in his chronic back pain. Patient also complains of right leg swelling concern for clot as he has had a clot in the past that caused a stroke. Patient denies any chest pain or shortness of breath - Related Data Home Medications Medication Instructions Recorded Confirmed Aspirin 81 mg PO DAILY 06/28/14 07/31/21 Atorvastatin [Lipitor] 40 mg PO HS 07/31/21 07/31/21 Loratadine 10 mg PO DAILY 07/31/21 07/31/21 Montelukast [Singulair] 10 mg PO HS 07/31/21 07/31/21 hydroCHLOROthiazide [Hydrodiuril] 12.5 mg PO DAILY 07/31/21 07/31/21 lisinopriL [Prinivil] 10 mg PO DAILY 07/31/21 07/31/21 Previous Rx's Medication Instructions Recorded Acetaminophen Tab [Tylenol Tab] 500 mg PO Q6H PRN #30 tablet 08/01/21 Ibuprofen [Motrin] 600 mg PO Q8HR PRN #20 tab 03/18/24 predniSONE 50 mg PO DAILY #5 tab 03/18/24 Allergies Allergy/AdvReac Type Severity Reaction Status Date / Time cefaclor [From Ceclor] Allergy Unknown Verified 03/18/24 06:11 Childhood Penicillins Allergy Rash/Hives Verified 03/18/24 06:11 Review of Systems ROS Statement: Those systems with pertinent positive or pertinent negative responses have been documented in the HPI. ROS Other: All systems not noted in ROS Statement are negative. 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 History of Any Multi-Drug Resistant Organisms: None Reported Past Surgical History: Hernia Repair Additional Past Surgical History / Comment(s): recent vasectomy, had minimally invasive surgery 3 yrs ago to repair "holes" in heart Past Anesthesia/Blood Transfusion Reactions: No Reported Reaction Past Psychological History: No Psychological Hx Reported Smoking Status: Never smoker Past Alcohol Use History: Occasional Past Drug Use History: None Reported General Exam Limitations: no limitations General appearance: alert, in no apparent distress Head exam: Present: atraumatic, normocephalic, normal inspection Respiratory exam: Present: normal lung sounds bilaterally. Absent: respiratory distress, wheezes, rales, rhonchi, stridor Cardiovascular Exam: Present: regular rate, normal rhythm, normal heart sounds. Absent: systolic murmur, diastolic murmur, rubs, gallop, clicks Extremities exam: Present: other (Right leg swelling noted there are pedal pulses equal bilaterally there is tenderness at the base of the heel across the arch of the foot at the ball) Neurological exam: Present: alert Skin exam: Present: warm, dry, intact, normal color. Absent: rash Course Vital Signs 03/18/24 06:08 Temperature 98 F Pulse Rate 90 Respiratory 18 Rate Blood Pressure 136/96 O2 Sat by Pulse 97 Oximetry Medical Decision Making - Medical Decision Making Was pt. sent in by a medical professional or institution (Dr. PA, MILK WAGON DRIVER, urgent care, hospital, or alf...) When possible be specific @ -No Did you speak to anyone other than the patient for history (EMS, parent, family, police, friend...)? What history was obtained from this source @ -No Did you review nursing and triage notes (agree or disagree)? Why? @ -I reviewed and agree with nursing and triage notes Were old charts reviewed (outside hosp., previous admission, EMS record, old EKG, old radiological studies, urgent care reports/EKG's, alf records)? Report findings @ -No old charts were reviewed Differential Diagnosis (chest pain, altered mental status, abdominal pain women, abdominal pain men, vaginal bleeding, weakness, fever, dyspnea, syncope, h eadache, dizziness, GI bleed, back pain, seizure, CVA, palpatations, mental health, musculoskeletal)? @ -Leg swelling, DVT, superficial thrombus Vitas, foot fracture, tendinitis, plantar fasciitis EKG interpreted by me (3pts min.). @ -None X-rays interpreted by me (1pt min.). @ -X-ray right foot no acute osseous abnormality or lesion noted CT interpreted by me (1pt min.). @ -None done U/S interpreted by me (1pt. min.). @ -Ultrasound venous Doppler right leg no DVT What testing was considered but not performed or refused? (CT, X-rays, U/S, labs)? Why? @ -None What meds were considered but not given or refused? Why? @ -None Did you discuss the management of the patient with other professionals (professionals i.e. , PA, MILK WAGON DRIVER, lab, RT, psych nurse, social media editor, interactive media project manager, teacher, surveillance dual rate officer, case maker)? Give summary @ -No Was smoking cessation discussed for >3mins.? @ -No Was critical care preformed (if so, how long)? @ -No Were there social determinants of health that impacted care today? How? (Homelessness, low income, unemployed, alcoholism, drug addiction, transportation, low edu. Level, literacy, decrease access to med. care, fdc, rehab)? @ -No Was there de-escalation of care discussed even if they declined (Discuss DNR or withdrawal of care, Hospice)? DNR status @ -No What co-morbidities impacted this encounter? (DM, HTN, Smoking, COPD, CAD, Cancer, CVA, ARF, Chemo, Hep., AIDS, mental health diagnosis, sleep apnea, morbid obesity)? @ -None Was patient admitted / discharged? Hospital course, mention meds given and route, prescriptions, significant lab abnormalities, going to OR and other pertinent info. @ -Discharge patient has plan fasciitis, right leg swelling no evidence of DVT. Patient will start anti-inflammatories and exercises as directed Undiagnosed new problem with uncertain prognosis? @ -No Drug Therapy requiring intensive monitoring for toxicity (Heparin, Nitro, Insulin, Cardizem)? @ -No Were any procedures done? @ -No Diagnosis/symptom? @ -Leg and, plantar fasciitis Acute, or Chronic, or Acute on Chronic? @ -Acute Uncomplicated (without systemic symptoms) or Complicated (systemic symptoms)? @ -Uncomplicated Side effects of treatment? @ -No Exacerbation, Progression, or Severe Exacerbation? @ -No Poses a threat to life or bodily function? How? (Chest pain, [place], [place], pneumonia, PE, COPD, DKA, ARF, appy, cholecystitis, CVA, Diverticulitis, Homicidal, Suicidal, threat to staff... and all critical care pts) @ -No Disposition Clinical Impression: Plantar fasciitis of right foot, Leg swelling Disposition: HOME SELF-CARE Condition: Stable Instructions (If sedation given, give patient instructions): Plantar Fasciitis (ED), Plantar Fasciitis Exercises (ED) Additional Instructions: Please return to the Emergency Department if symptoms worsen or any other concerns. Prescriptions: Ibuprofen [Motrin] 600 mg PO Q8HR PRN #20 tab PRN Reason: Pain predniSONE 50 mg PO DAILY #5 tab Is patient prescribed a controlled substance at d/c from ED?: No Referrals: Joanne Pisano MD [Primary Care Provider] - 1-2 days Ezequiel Ponce MD [Medical Doctor] - 1-2 days Time of Disposition: 07:49
--- NOTE | 2024-03-18 06:52 | XR ---
EXAMINATION TYPE: XR foot complete RT DATE OF EXAM: 03/18/2024 CLINICAL HISTORY: pain TECHNIQUE: Frontal, lateral, and oblique images of the right foot are obtained. COMPARISON: None FINDINGS: There is no acute fracture/dislocation evident in the right foot. The joint spaces in the right foot appear within normal limits. The overlying soft tissue appears unremarkable. IMPRESSION: Unremarkable study.
--- NOTE | 2024-03-18 07:37 | US ---
EXAMINATION TYPE: US venous doppler duplex LE RT DATE OF EXAM: 03/18/2024 6:25 AM COMPARISON: NONE CLINICAL INDICATION: Male, 39 years old with history of pain; rt foot pain SIDE PERFORMED: Right TECHNIQUE: The lower extremity deep venous system is examined utilizing real time linear array sonog jose juan with graded compression, doppler sonography and color-flow sonography. VESSELS IMAGED: Common Femoral Vein Deep Femoral Vein Greater Saphenous Vein * Femoral Vein Popliteal Vein Small Saphenous Vein * Proximal Calf Veins (* superficial vessels) Right Leg: Negative for DVT IMPRESSION: Grayscale, color doppler, spectral doppler imaging performed of the deep veins of the lo wer extremities. There is normal flow, compressibility, vascular waveforms.
[2024-03-18] MEDS: ACET/COD 300 MG/30 MG STARTER PACK 6 TAB BTL PO STA (08:03)
[2024-03-18 08:11] VITALS: BP 132/87; PULSE 85
== END 2024-03-18 08:05 | disposition home or self-care (01) ==
LOC: EC 06:00
DX: M72.2 Plantar fascial fibromatosis (principal); Z88.0 Allergy status to penicillin; Z88.1 Allergy status to other antibiotic agents; Z86.73 Personal history of transient ischemic attack (TIA), and cerebral infarction without residual deficits
CPT/HCPCS: 99284

== ENCOUNTER → 2024-08-17 | Outpatient (CLI) | payer BC ==
--- NOTE | 2024-08-17 10:00 | US ---
EXAMINATION TYPE: US scrotum with doppler. DATE OF EXAM: 08/17/2024 COMPARISON: Multiple scrotal ultrasounds most recently of 12/25/2023 CLINICAL INDICATION: Male, 39 years old with history of N50.9 DISORDER OF MALE GENITALS; follow up to previous TECHNIQUE: Grayscale, color Doppler and spectral Doppler imaging of the scrotum. FINDINGS: EXAM MEASUREMENTS: TESTICLES: Right Testicle: 4.2 x 2.5 x 3.7 cm Left Testicle: 4.4 x 2.6 x 2.9 cm EPIDIDYMIS HEAD: Right Epididymis: 1.1 x .9 x 1.25 cm cm Left Epididymis: .9 x 1.4 x 1.3 cm Doppler performed to assess for testicular vascularity; good bilateral color flow and spectral wavefo denis are seen. There is no evidence of testicular torsion. Presence of hydroceles: no Presence of varicoceles: no IMPRESSION: 1. No evidence for testicular torsion. 2. Previously seen left epididymal tail lesion is not well appreciated on today's exam. Short-term fo llow-up ultrasound is recommended. [facility], , 08/17/2024 9:57 AM
== END | disposition home or self-care (01) ==
LOC: RADUSWWP 09:22
PROVIDERS: ATTEND Family Medicine
DX: N50.9 Disorder of male genital organs, unspecified (principal)
CPT/HCPCS: 76870; 93975